=== PATIENT | male | born 1975 | race Caucasian/White ===

== ENCOUNTER 2018-12-09 22:00 | Emergency (ER) | payer OTHER ==
[~2018-12-09] VITALS: Ht 180.3 cm; Wt 136.1 kg
[~2018-12-09 22:00] MED LIST: ALTOPREV20 M1 PO; ATIVAN1 MG PO; BACTRIM DS TAB1 EACH PO; BETA CAROTEN25000 IU PO; CATAPRES0.2 M1 PO; CHLORDIAZEPOXID25 M1 PO; DARVOCET-N 1001 EACH PO; DOXYCYCLINE 10100 MG PO; KEFLEX500 MG PO; LISINOPRIL20 MG PO; LIVER-KIDNEY C1 EACH PO; LOVASTATIN 20 M20 MG PO; MAGOX 400400 MG PO; METFORMIN HCL500 MG PO; NAPROSYN500 MG PO; NOHOMEMEDICATIONS; ONDANSETRON HCL4 M2 PO; PHENERGAN 25 MG25 M1 PO; PRINIVIL20 M1 PO; SUPER B COMPLE150 MG PO; TRINATE TABLET1 TAB PO
[2018-12-09 22:05] VITALS: BP 155/91
[2018-12-09] MEDS ORDERED: LAMISIL AT 1% C12 G1 TOP (22:18)
== END 2018-12-09 22:50 | disposition home or self-care (01) ==
LOC: ER 22:00
DX: B35.4 Tinea corporis (principal); I10 Essential (primary) hypertension; F41.9 Anxiety disorder, unspecified; E78.00 Pure hypercholesterolemia, unspecified; E11.9 Type 2 diabetes mellitus without complications; E78.5 Hyperlipidemia, unspecified; Z88.8 Allergy status to other drugs, medicaments and biological substances